=== PATIENT | male | born 1990 | race Two or more races ===

== ENCOUNTER 2024-07-10 21:07 | Emergency (ER) | payer MEDICAID, SELFPAY ==
[2024-07-10 21:08] VITALS: BMI 31.5
[2024-07-10 21:17] VITALS: BP 143/81; PULSE 84; RESP 19; TEMP 36.8; O2SAT 97
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
--- NOTE | 2024-07-10 23:46 | PC.NURSE ---
no answer x 1 at [id number]. checked outside and lobby.
--- NOTE | 2024-07-10 23:51 | PC.NURSE ---
no answer x 1 at 2350. checked outside and lobby.
== END 2024-07-11 00:02 | disposition home or self-care (01) ==
PROVIDERS: Emergency Provider Emergency Medicine
DX: S09.90XA Unspecified injury of head, initial encounter (principal); S19.9XXA Unspecified injury of neck, initial encounter; V89.9XXA Person injured in unspecified vehicle accident, initial encounter
CPT/HCPCS: 70450; 72125; 99284

== ENCOUNTER → 2025-02-16 | Outpatient (CLI) | payer MEDICAID, SELFPAY ==
--- NOTE | 2025-02-16 08:30 | XR_ITS ---
Exam: MRI knee without contrast, left complete Date and time of exam: 2024, 0850 hrs. Indications: Left knee pain difficulty moving swelling after fall 2 months ago. Technique: Multiple axial, coronal, and sagittal sections on the knee have been obtained. T2-Weighted sagittal, fat-suppressed images, TR 3,500, TE 62, T2 weighted coronal fat-saturated images, TR 3,500, TE 62 Proton density sagittal sections, TR 1800, TE 31. T-1 weighted coronal images, TR 524, TE 13.0 Findings: Medial meniscus anterior horn intact.. Medial meniscus, body intact.. Posterior horn medial meniscus intact.. Lateral meniscus anterior horn is intact Lateral meniscus, body is intact Posterior horn lateral meniscus is intact Anterior cruciate ligament high-grade sprain. Posterior cruciate ligament appears intact. Knee effusion is minimal.. Quadriceps and patellar tendons appear intact. There is no evidence of tendinosis. Inflammatory change or fracture of Hoffa's fat pad is not seen. Medial patellar facet demonstrates mild. thinning. Lateral patellar facet cartilage demonstrates mild. thinning. Trochlear cartilage demonstrates mild. thinning. Marrow signal adequate.. Medial collateral ligament appears intact. No meniscocapsular separation is seen. Illiotibial band and fibular collateral ligament are intact. Biceps femoris tendons appear intact. Medial femoral condylar articular cartilage demonstrates mild. thinning. Lateral femoral condylar articular cartilage demonstratesmild. thinning. Tibial plateau cartilage demonstrates mild. thinning. Impression: High-grade sprain anterior cruciate ligament.
== END | disposition home or self-care (01) ==
LOC: SMRI 08:26
PROVIDERS: Referring Provider Physician Assistant; Visit Provider Physician Assistant
DX: S86.912D Strain of unspecified muscle(s) and tendon(s) at lower leg level, left leg, subsequent encounter (principal); W19.XXXD Unspecified fall, subsequent encounter
CPT/HCPCS: 73721